=== PATIENT | female | born 1955 | race Caucasian/White ===

== ENCOUNTER 2021-10-12 16:17 | Outpatient (CLI) | payer OTHER, SELFPAY ==
[2021-10-12 23:16] LABS: Albumin* 4.2 g/dL (3.3-5.0)
[2021-10-12 23:17] LABS: Chloride* 106 mmol/L (96-114); Potassium* 4.5 mmol/L (3.6-5.1); Sodium* 140 mmol/L (135-149)
[2021-10-12 23:19] LABS: Alanine Aminotransferase* 41 U/L (4-35); Alkaline Phosphatase* 92 U/L (40-150); Aspartate Amino Transferase* 39 U/L (12-35); Bilirubin Total* 0.5 mg/dL (0.1-1.5); Blood Urea Nitrogen* 15 mg/dL (7-30); Carbon Dioxide* 27 mmol/L (20-32); Cholesterol* 247 mg/dL (90-199); Creatinine* 0.9 mg/dL (0.5-1.5); Estimated Glomerular Filt Rate 72 ml/min; Glucose* 124 mg/dL (60-115)
[2021-10-12 23:20] LABS: Calcium* 9.7 mg/dL (8.4-10.6); HDL Cholesterol* 31 mg/dL (>=50); LDL Cholesterol Calculated 117 mg/dL (<100)
[2021-10-12 23:24] LABS: Triglycerides* 495 mg/dL (40-149)
== END 2021-10-12 16:18 | disposition home or self-care (01) ==
PROVIDERS: PCP Family Medicine; Visit Provider Internal Medicine
DX: E11.9 Type 2 diabetes mellitus without complications (principal)
CPT/HCPCS: 80053; 80061; 84443

== ENCOUNTER 2022-04-02 13:49 | Outpatient (CLI) | payer OTHER, SELFPAY ==
[2022-04-02 09:40] LABS: Cholesterol* 271 mg/dL (90-199); HDL Cholesterol* 47 mg/dL (>=50); LDL Cholesterol Calculated 129 mg/dL (<100)
[2022-04-02 09:45] LABS: Triglycerides* 474 mg/dL (40-149)
== END 2022-04-02 13:50 | disposition home or self-care (01) ==
PROVIDERS: PCP Internal Medicine; Visit Provider Internal Medicine
DX: E78.5 Hyperlipidemia, unspecified (principal); E03.9 Hypothyroidism, unspecified; E11.9 Type 2 diabetes mellitus without complications; I10 Essential (primary) hypertension
CPT/HCPCS: 80061

== ENCOUNTER 2022-10-11 07:27 | Outpatient (CLI) | payer OTHER, SELFPAY | END 2022-10-11 07:28 | disposition home or self-care (01) | LOC: NFLDREF 10-12 06:39 | PROVIDERS: PCP Internal Medicine; Referring Provider Internal Medicine; Visit Provider Internal Medicine | DX: E11.9 Type 2 diabetes mellitus without complications (principal); E03.9 Hypothyroidism, unspecified; I10 Essential (primary) hypertension; E78.5 Hyperlipidemia, unspecified; E66.9 Obesity, unspecified | CPT/HCPCS: 80053; 80061; 82043; 82570; 84439; 84443 ==

== ENCOUNTER 2023-04-19 07:25 | Outpatient (CLI) | payer OTHER, SELFPAY | END 2023-04-19 07:26 | disposition home or self-care (01) | LOC: NFLDREF 05-03 14:49 | PROVIDERS: PCP Internal Medicine; Referring Provider Internal Medicine; Visit Provider Internal Medicine | DX: E11.9 Type 2 diabetes mellitus without complications (principal); E78.5 Hyperlipidemia, unspecified | CPT/HCPCS: 80053; 80061 ==

== ENCOUNTER 2023-07-04 07:57 | Outpatient (CLI) | payer OTHER, SELFPAY ==
--- OUTSIDE RECORDS SUMMARY | 2023-07-04 07:59 | XMS_ITS | Clinical Summary ---
Author Organization [place] Address [facility]0 [facility] [place] [address] Care Team Providers Care Appetizer Packer Name Role Phone CroweTeetee APRN DESIGNER ARCHITECT Primary Care Provide r Allergies Active Allergy Reactions Criticality Noted Date Comments Morphine Nausea and Vomiting 07/06/2015 Medications Medication Sig Dispensed Refills Start Date End Date Status hyoscyamine (LEVSIN/SL) 0.125 MG SL tablet Take 0.125 mcg by mouth as needed 11 03/03/2015 Active metoprolol (LOPRESSOR) 25 MG tablet Take 25 mg by mouth 2 times daily 11 06/25/2015 Active blood glucose monitoring (ACCU-CHEK SMARTVIEW) test stripIndications:Hyp othyroidism due to acquired atrophy of thyroid,Prediabetes Use to test blood sugar 2 times daily or as directed. 50 each 11 09/06/2015 Active blood glucose monitoring (ACCU-CHEK FASTCLIX) lancetsIndications:H ypothyroidism due to acquired atrophy of thyroid,Prediabetes Use to test blood sugar 2 times daily or as directed. 1 Box 11 09/06/2015 Active Multiple Vitamin (MULTI VITAMIN DAILY) TABS 03/22/2016 Active losartan (COZAAR) 50 MG tablet Take 50 mg by mouth daily 04/21/2018 Active meloxicam (MOBIC) 7.5 MG tablet Take 7.5 mg by mouth daily 08/19/2017 Active metFORMIN (GLUCOPHAGE-XR) 500 MG 24 hr tabletIndications:Pr ediabetes Take 4 tablets (2,000 mg) by mouth daily (with dinner) 360 tablet 3 05/28/2018 Active levothyroxine (SYNTHROID/LEVOTHROI D) 112 MCG tabletIndications:Hy pothyroidism due to acquired atrophy of thyroid TAKE ONE TABLET BY MOUTH ONE TIME DAILY 90 tablet 2 08/04/2018 Active Active Problems Problem Noted Date Diagnosed Date Prediabetes 07/14/2015 Hypertension 04/15/2014 Hypothyroidism 03/23/2014 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 Overview: Overview: Per CT scan in 2010 Irritable bowel syndrome 02/06/2011 Vitamin D deficiency 02/06/2011 Hyperlipidemia LDL goal <100 03/03/2009 Encounter for screening for malignant neoplasm o f colon 01/25/2009 Overview: Overview: Colonoscopy 01/2009 normal repeat in 10 years Family History Medical History Relation Comments Heart Disease Father cardiomyopathy/d -[place]/86 Rheumatoid Arthritis Father Heart Disease Mother Hyperlipidemia Mother Hypothyroidism Mother Relation Status Comments Father Mother Social History Tobacco Use Types Packs/Day Years Used Date Smoking Tobacco: Never Smokeless Tobacco: Never Alcohol Use Standard Drinks/Week Comments Yes 0 (1 standard drink = 0.6 oz pur e alcohol) rarely Adolescent Education Answer Date Record ed Getting School Help Needed Not on file 11/02 Sex and Gender Information Value Date Recorded Sex Assigned at Not on file Gender Identity Not on file Sexual Orientation Not on file Last Filed Vital Signs Vital Sign Reading Time Taken Comments Blood Pressure 130/80 05/28/2018 12:31 PM CDT Pulse 62 06/20/2017 7:26 AM CDT Temperature 37 ??C (98.6 ??F) 08/30/2016 7:03 AM CDT Respiratory Rate 16 08/30/2016 7:03 AM CDT Oxygen Saturation 95% 06/20/2017 7:26 AM CDT Inhaled Oxygen Concentration - - Weight 107.1 kg (236 lb 1.6 oz) 06/20/2017 7:26 AM CDT Height 172.7 cm (5' 8) 06/20/2017 7:26 AM CDT Body Mass Index 35.9 06/20/2017 7:26 AM CDT Plan of Treatment Not on file Care Teams Appetizer Packer Relationship Specialty Start Date End Date Teetee Crowe APRN DESIGNER ARCHITECT [address] [place], [place] [phone] PCP - General Clinical Nurse Specialist 08/17/16
--- OUTSIDE RECORDS SUMMARY | 2023-07-04 07:59 | XMS_ITS | Referral Summary ---
Author Organization [place] Address [facility]0 [place] [address] Care Team Providers Care Tractor Driver Teamster Name Role Phone Teetee Crowe APRN LITIGATION EXAMINER Primary Care Provide r Allergies Active Allergy [...] Colonoscopy 01/2009 normal repeat in 10 years Social History Tobacco Use Types Packs/Day Years [...] of Treatment Not on file Care Teams Tractor Driver Teamster Relationship Specialty Start Date End Date Teetee Crowe APRN LITIGATION EXAMINER [id number] [place] [address] PCP - General Clinical Nurse Specialist 08/17/16
--- NOTE | 2023-07-04 08:15 | CRLHL7_ITS ---
For Patients: As a result of the Century Cures Act, medical imaging exams and procedure reports are released immediately into your electronic medical record. You may view this report before your referring provider. If you have questions, please contact your health care provider. BILATERAL SCREENING MAMMOGRAM WITH COMPUTER-AIDED DETECTION AND TOMOSYNTHESIS TECHNIQUE: CC and MLO views were obtained. These mammographic images have been obtained using full-field digital technique. These mammographic images were interpreted with the benefit of computer-aided detection. Breast Tomosynthesis was used in this interpretation. COMPARISON FILM: 07/02/22, 02/06/21, 11/26/19. FINDINGS: There are scattered areas of fibroglandular density. IMPRESSION: There is no radiographic evidence for malignancy. ASSESSMENT: BI-RADS Category 1: Negative RECOMMENDATION: Routine screening mammogram in 1 year. A lay language report of this examination will be provided to the patient. Jarrett Clifford M.D. Diagnostic Radiologist [email or web address] SP/Dictated by: Jarrett Clifford MD @ 07/04/2023 12:44:00 PM (Electronically Signed)
== END 2023-07-04 07:58 | disposition home or self-care (01) ==
LOC: MAMMO 07:58
PROVIDERS: PCP Internal Medicine; Visit Provider Internal Medicine
DX: Z12.31 Encounter for screening mammogram for malignant neoplasm of breast (principal)
CPT/HCPCS: 77063; 77067

== ENCOUNTER 2023-10-28 07:35 | Outpatient (CLI) | payer OTHER, SELFPAY ==
--- OUTSIDE RECORDS SUMMARY | 2023-10-30 17:01 | XMS_ITS | Referral Summary ---
Author Organization [place] Address [facility] [place] [address] Care Team Providers Care Annealing Operator Name Role Phone Teetee Crowe APRN SIMPLEX PRINTER INSTALLER Primary Care Provide r Allergies Active Allergy [...] of Treatment Not on file Care Teams Annealing Operator Relationship Specialty Start Date End Date Teetee Crowe APRN SIMPLEX PRINTER INSTALLER [address] [place] [address] PCP - General Clinical Nurse Specialist 08/17/16
--- OUTSIDE RECORDS SUMMARY | 2023-10-30 17:01 | XMS_ITS | Clinical Summary ---
Author Organization [place] Address [facility]0 [facility] [place] [address] Care Team Providers Care Speech Clinician Name Role Phone CroweTeetee APRN CUT OUT MARKER Primary Care Provide r Allergies Active Allergy [...] History Relation Comments Heart Disease Father cardiomyopathy/d -[place]/86 Rheumatoid Arthritis Father Heart Disease Mother Hyperlipidemia [...] of Treatment Not on file Care Teams Speech Clinician Relationship Specialty Start Date End Date Teetee Crowe APRN CUT OUT MARKER [address] [place], [place] [id number] PCP - General Clinical Nurse Specialist 08/17/16
== END 2023-10-28 07:36 | disposition home or self-care (01) ==
LOC: NFLDREF 10-30 17:00
PROVIDERS: PCP Internal Medicine; Referring Provider Internal Medicine; Visit Provider Internal Medicine
DX: E78.5 Hyperlipidemia, unspecified (principal); M10.9 Gout, unspecified; E03.9 Hypothyroidism, unspecified; E11.9 Type 2 diabetes mellitus without complications; Z79.84 Long term (current) use of oral hypoglycemic drugs
CPT/HCPCS: 80053; 80061; 82043; 82570; 84443; 84550

== ENCOUNTER 2024-08-31 07:26 | Outpatient (CLI) | payer MEDICARE, SELFPAY ==
--- NOTE | 2024-08-31 07:45 | CRLHL7_ITS ---
For Patients: As a result of the Century Cures Act, medical imaging exams and procedure reports are released immediately into your electronic medical record. You may view this report before your referring provider. If you have questions, please contact your health care provider. INDICATION: BILATERAL SCREENING MAMMOGRAM, ASYMPTOMATIC 68 Y/O FEMALE COMPARISON: 07/04/2023, 07/02/2022, 02/06/2021 TECHNIQUE: Digital mammogram in CC and MLO projections including computer-aided detection (CAD) and tomosynthesis. BREAST COMPOSITION: There are scattered areas of fibroglandular density. FINDINGS: No suspicious findings. ASSESSMENT: BI-RADS 1 Negative RECOMMENDATION: Annual screening mammogram. A lay language report of this examination will be provided to the patient. Dictated by: Yamilex Calles MD @ 09/03/2024 07:45:41 (Electronically Signed)
== END 2024-08-31 07:27 | disposition home or self-care (01) ==
LOC: MAMMO 07:28
PROVIDERS: PCP Internal Medicine; Visit Provider Internal Medicine
DX: Z12.31 Encounter for screening mammogram for malignant neoplasm of breast (principal)
CPT/HCPCS: 77063; 77067

== ENCOUNTER 2024-10-22 13:39 | Outpatient (CLI) | payer MEDICARE, SELFPAY ==
--- NOTE | 2024-10-22 14:00 | CRLHL7_ITS ---
For Patients: As a result of the Century Cures Act, medical imaging exams and procedure reports are released immediately into your electronic medical record. You may view this report before your referring provider. If you have questions, please contact your health care provider. XR DXA Bone Mineral Density (BMD) Reason for exam: Screening for osteoporosis. Current height (inches): 68.0 Weight (lbs.): 220.0 Menopause age: 52 Ethnicity: White 1. Have you had a previous hip or vertebral fracture? No. 2. Have you had any fractures during your adult life which did not result from significant trauma (e.g., auto accident)? No. 3. Did either of your parents have a hip fracture? No. 4. Do you smoke? No. 5. Have you ever taken Glucocorticoids? Yes. 6. Do you have rheumatoid arthritis? No. 7. Do you have secondary osteoporosis? No. 8. Do you drink 3 or more alcoholic drinks per day? No. 9. Are you being treated for osteoporosis? No. 10. Have you ever taken any of the following medications: Actonel, Evista, Fosamax, Miacalcin, Reclast, Boniva, Forteo, HRT (i.e., estrogen/hormone therapy), Protelos, Prolia, Vitamin D, Calcium, other ??? please specify. ANSWER: Yes; vitamin D, calcium and hormone replacement therapy. 11. Do you have any of the following medical conditions: Anorexia or bulimia, asthma or emphysema, end stage renal disease, hyperparathyroidism, any seizure disorders, cancer, inflammatory bowel diseases, hysterectomy, other ??? please specify. ANSWER: Yes; cancer and hysterectomy. 12. What was your maximum height (inches)? 68.5. 13. Do you perform weightbearing exercise regularly? Yes. 14. Do you regularly consume dairy products? Yes. 15. Do you drink caffeinated beverages? Yes. 16. At what age did your period start? 13. 17. Are you premenopausal? No. 18. How many full-term pregnancies have you had? 2. 19. Have you ever missed your period for more than 6 months in a row (not including or menopause)? No. TECHNIQUE: Bone mineral density study was performed using the Post.Bid.Ship. FINDINGS: The results of the study expressed as bone mineral density (BMD) are as follows: Lumbar Spine L1 to L3: BMD: 0.876 g/cm2. T-score: -1.3. Z-score: 0.6. Femoral Neck Left: BMD: 0.669 g/cm2. T-score: -1.6. Z-score: 0.0. Total Hip Left: BMD: 0.795 g/cm2. T-score: -1.2. Z-score: 0.1. IMPRESSION: Osteopenia. FRAX 10-year Fracture Risk Major Osteoporotic Fracture: 14% Hip Fracture: 2.0% Reported Risk Factors: [place] () Neck BMD = 0.669, BMI = 33.5. Glucocorticoids. JARRETT MILLER M.D. Diagnostic Radiologist [email or web address] Transcribed: 6:[address]/Dictated by: Jarrett Miller MD @ 10/22/2024 3:12:00 PM (Electronically Signed)
== END 2024-10-22 13:40 | disposition home or self-care (01) ==
LOC: RAD 13:40
PROVIDERS: PCP Internal Medicine; Visit Provider Internal Medicine
DX: Z13.820 Encounter for screening for osteoporosis (principal); M85.89 Other specified disorders of bone density and structure, multiple sites; Z78.0 Asymptomatic menopausal state
CPT/HCPCS: 77080

== ENCOUNTER 2024-11-04 07:38 | Outpatient (CLI) | payer MEDICARE, SELFPAY | END 2024-11-04 07:39 | disposition home or self-care (01) | LOC: NFLDREF 11-06 14:28 | PROVIDERS: PCP Internal Medicine; Referring Provider Internal Medicine; Visit Provider Internal Medicine | DX: E11.9 Type 2 diabetes mellitus without complications (principal); M10.9 Gout, unspecified; E03.9 Hypothyroidism, unspecified | CPT/HCPCS: 80053; 80061; 82043; 82570; 84443; 84550 ==